=== PATIENT | male | born 1990 | race Two or more races ===

== ENCOUNTER 2023-10-15 11:37 | Emergency (ER) | payer BC, SELFPAY ==
--- NOTE | 2023-10-15 11:30 | RT.EKG_ITS ---
APPROVED REPORT Exam: Resting ECG Reason for Exam: chest pain Patient Location: E HR:114 bpm ECG Measurements Heart Rate [address] 182 P 47 QRSd 92 QRS 63 QT 355 T 263 QTc 490 Conclusion Sinus tachycardia. non specific st changes
[2023-10-15 11:40] VITALS: BP 122/94; PULSE 118; RESP 18; TEMP 37
[2023-10-15 12:18] LABS: HCT 47.2 % (40.0-50.0); HGB 16.4 g/dL (13.5-17.5); MCH 28.4 pg (27.0-33.0); MCHC 34.7 % (32.0-36.0); MCV 82 fL (80-95); MPV 12.6 fL (8.0-11.0); Platelet Count 182 10^3/uL (130-400); RBC 5.78 10^6/uL (4.36-5.78); RDW 12.4 % (11.8-14.1); RDW-SD 37.1 fL
[2023-10-15 12:32] LABS: ALT 22 U/L (16-63); AST 12 U/L (15-37); Albumin 4.6 g/dL (3.4-5.0); Alkaline Phosphatase 105 U/L (46-116); Anion Gap 12.6 mmol/L (3-11); BUN 13 mg/dL (7-18); Bilirubin, Total 2.3 mg/dL (0.2-1.0); CO2 27.4 mmol/L (21.0-32.0); CREATININE 0.9 mg/dL (0.70-1.30); Calcium 9.3 mg/dL (8.5-10.1); Chloride 101 mmol/L (98-107); Estimated GFR 114.22 (mL/min/1.73m2); Glucose 97 mg/dL (74-106); Lipase 20 U/L (16-77); Potassium 3.3 mmol/L (3.5-5.1); Sodium 141 mmol/L (136-145); Total Protein 8.1 g/dL (6.4-8.2)
[2023-10-15] MEDS: Normal Saline 1,000 ML 1000 ML IV (12:45)
[2023-10-15 12:53] LABS: Absolute Basophil Count 0.07 10^3/uL (0.0-0.2); Absolute Eosinophil Count 0.26 10^3/uL (0.0-0.7); Absolute Lymphocyte Count 2.09 10^3/uL (1.2-3.4); Absolute Monocyte Count 0.07 10^3/uL (0.1-0.8); Absolute Neutrophil Count 4.04 10^3/uL (1.2-6.7); Atypical Lymphocytes % 11 %; Bands % 1 %; Diff Comment Manual Differential
[2023-10-15 12:54] LABS: RBC Morphology Normal
[2023-10-15 12:55] LABS: WBC 6.52 10^3/uL (4.4-10.8)
--- NOTE | 2023-10-15 12:59 | DI.CT_ITS ---
Exam(s) CT ABDOMEN PELVIS WO EXAM: CT ABDOMEN PELVIS WO CLINICAL HISTORY: left flank pain. TECHNIQUE: Imaging Protocol: Axial computed tomography images with coronal and sagittal reformatted images were created and reviewed. Oral: no COMPARISON: No exams were available for comparison FINDINGS: Lung Bases: No acute findings. Liver: Normal density. No suspicious mass. Gallbladder and biliary tract: No radiodense calculus or biliary dilation. Pancreas: Normal density. No abnormal calcifications or inflammatory process. Spleen: Normal. Kidneys: Normal size, contour and axis. No radiodense stones. No obstructive uropathy. No suspicious masses seen. Adrenal glands: No masses seen. Lymph nodes: Within normal limits. Vasculature: Abdominal aorta non-dilated. Soft tissues: Unremarkable. Bladder: No wall thickening. No mass or calculi. Bowel: No obstruction or bowel wall thickening. Peritoneal cavity: No ascites. No focal collection. No mesenteric inflammatory response. Reproductive organs: Unremarkable. Bones: Unremarkable for age. IMPRESSION: No acute abnormality in the abdomen or pelvis. RADIATION DOSE DELIVERED: 693.03mGy.cm Total DLP DATA REPOSITORY: All CT scans at this facility are submitted to the National Radiology Data Registry (NRDR) Dose Index Registry (DIR) with the [employer] ([employer]). RADIATION OPTIMIZATION: All CT scans at this facility use at least one of these dose optimization te chniques: automated exposure control; mA and/or kV adjustment per patient size (includes targeted exa ms where dose is matched to clinical indication); or iterative reconstruction.
[2023-10-15 13:14] LABS: Bilirubin Negative (Negative); Blood Negative (Negative); Clarity Clear (Clear); Glucose Negative (Negative); Ketones 40 mg/dL (Negative); Leukocyte Esterase Negative (Negative); Nitrite Negative (Negative); Urobilinogen 0.2 mg/dL (Up to 0.2); pH 6.5 (5-8)
[2023-10-15 13:56] VITALS: BP 125/77; PULSE 75; RESP 16; O2SAT 100
--- NOTE | 2023-10-15 16:56 | ED.GENADUL_ITS ---
Discharge Plan Disposition Patient Disposition: Home Condition: Stable Discharge Details Clinical Impression: Abdominal pain, Constipation, Dehydration Primary Care Provider: Hakan Sommer ED Provider: Pushpa Currie Home Meds and New Rx's Prescriptions: No Action No Known Home Meds Discharge Instructions Instructions: Constipation (ED) Additional Instructions: Your workup today shows that you do have some signs of dehydration. You were given IV fluids. Please continue aggressive hydration at home. Believe that this is contributing to your abdominal pain. Your CT scan is concerning for a fair amount of stool and gas. This can cause significant pain. Start MiraLAX 1 cap twice daily. Follow-up with PCP if symptoms do not prove. Discharge Data Discharge Date/Time-TO BE ENTERED AT DEPARTURE: 10/15/23 14:02 HPI General Date/Time Provider Initiated Documentation: 10/15/23 11:47 . Limitations to Documentation: no limitations . Information obtained by: patient . HPI Narrative: 33-year-old gentleman without significant past medical history presents for evaluation of left upper quadrant abdominal pain. He reports that he has been having this pain for the last 2 days. He says that it started after having a very hard bowel movement. He states that he felt very constipated. The pain is localized to the left upper quadrant. It is not associated with exertion or shortness of breath. It was present for a day and then resolved and then returned today. No associated vomiting, dysuria. He reports that he had a normal bowel movement this morning with no pain. He does report similar symptoms a few years ago and an ER visit but he does not recall a specific diagnosis. Related Data Home Medications Medication Instructions Recorded Confirmed Unknown [No Known Home Meds] 10/15/23 10/15/23 Allergies Allergy/AdvReac Type Severity Reaction Status Date / Time ibuprofen Allergy Intermediate Hives Verified 10/15/23 12:36 Fish Containing Products Allergy Other (See Verified 10/15/23 12:36 Comment) Milk Containing Products Allergy Other (See Verified 10/15/23 12:36 (Dairy) Comment) General Stated Complaint: Chest/Rib DEVAN: 3 Exam Narrative Exam Narrative: Review of Systems: All systems reviewed & are unremarkable except as noted in HPI and below Well-developed, no acute distress NCAT PERRL, normal conjunctiva RRR no murmur Unlabored respiratory effort, clear bilaterally Nondistended abdomen, soft, no organomegaly, tenderness in the left upper quadrant with no CVA tenderness Extremities w/o deformity, no cyanosis, no edema No rashes or lesions. no focal neurologic deficits Appropriate mood and affect Course Vital Signs Vital signs: Vital Signs Temperature 37.0 C 10/15/23 11:40 Pulse 118 H 10/15/23 11:40 Respiratory Rate 18 10/15/23 11:40 Blood Pressure 122/94 H 10/15/23 11:40 Temperature 37.0 C 10/15/23 11:40 Temperature Source Temporal Artery Scan 10/15/23 11:40 Pulse 75 10/15/23 13:56 Respiratory Rate 16 10/15/23 13:56 Respiratory Effort Normal 10/15/23 12:00 Respiratory Depth Normal 10/15/23 12:00 Respiratory Pattern Normal 10/15/23 12:00 Blood Pressure 125/77 10/15/23 13:56 Blood Pressure Position Sitting 10/15/23 11:40 Pulse Oximetry 100 10/15/23 13:56 Oxygen Delivery Method Room Air 10/15/23 11:40 Oxygen Flow Rate 0 10/15/23 11:40 Lab/Test Results Lab/Test Results: Laboratory Tests Range/Units 10/15/23 10/15/23 10/15/23 12:05 12:05 12:43 WBC (4.4-10.8) 10^3/uL 6.52 RBC (4.36-5.78) 10^6/uL 5.78 Hgb (13.5-17.5) g/dL 16.4 Hct (40.0-50.0) % 47.2 MCV (80-95) fL 82 MCH (27.0-33.0) pg 28.4 MCHC (32.0-36.0) % 34.7 RDW (11.8-14.1) % 12.4 Plt Count (130-400) 10^3/uL 182 MPV (8.0-11.0) fL 12.6 H Immature Gran % % 0.0 Neutrophils % % 61.0 Band Neutrophils % % 1 Lymphocytes % % 21.0 Atypical Lymphs % % 11 Monocytes % % 1.0 Eosinophils % % 4.0 Basophils % % 1.0 Nucleated RBC % (0.0-0.3) % 0.0 Absolute Neutrophils (1.2-6.7) 10^3/uL 4.04 Absolute Lymphocytes (1.2-3.4) 10^3/uL 2.09 Absolute Monocytes (0.1-0.8) 10^3/uL 0.07 L Absolute Eosinophils (0.0-0.7) 10^3/uL 0.26 Absolute Basophils (0.0-0.2) 10^3/uL 0.07 RBC Morphology Normal Sodium (136-145) mmol/L 141 Potassium (3.5-5.1) mmol/L 3.3 L Chloride (98-107) mmol/L 101 Carbon Dioxide (21.0-32.0) mmol/L 27.4 Anion Gap (3-11) mmol/L 12.6 H BUN (7-18) mg/dL 13 Creatinine (0.70-1.30) mg/dL 0.9 Est GFR (CKD-EPI 2020) (mL/min/1.73m2) 114.22 Glucose (74-106) mg/dL 97 Calcium (8.5-10.1) mg/dL 9.3 Total Bilirubin (0.2-1.0) mg/dL 2.3 H AST (15-37) U/L 12 L ALT (16-63) U/L 22 Alkaline Phosphatase (46-116) U/L 105 Total Protein (6.4-8.2) g/dL 8.1 Albumin (3.4-5.0) g/dL 4.6 Lipase Cancelled 20 Urine Color (Yellow) Yellow Urine Clarity (Clear) Clear Urine pH (5-8) 6.5 Ur Specific [place] (1.005-1.025) 1.010 Urine Protein (Neg-Trace) mg/dL Negative Urine Ketones (Negative) mg/dL 40 H Urine Blood (Negative) Negative Urine Nitrite (Negative) Negative Urine Bilirubin (Negative) Negative Urine Urobilinogen (Up to 0.2) mg/dL 0.2 Ur Leukocyte Esterase (Negative) Negative Urine Glucose (Negative) mg/dL Negative Medical Decision Making Emergent evaluation of left upper quadrant abdominal pain ongoing for 2 days. Initial differential includes constipation, renal colic, pancreatitis, dehydration. The patient has a benign initial abdominal exam. His vital signs are stable. Initial tachycardia resolved in the room. Patient seems slightly anxious regarding the symptoms. Lab work reviewed. Normal white blood cell count and no significant anemia, perhaps some hemoconcentration even. Lab work reviewed, slightly low potassium. Slightly elevated anion gap with corresponding ketones in his urine. Feel that this is some sign of dehydration. He does have a slightly elevated bilirubin, but no right upper quadrant tenderness his your urinalysis is unremarkable aside from the ketones. And his lipase is normal. He was resuscitated with IV fluids. A CT scan was obtained, to be this does demonstrate a fair amount of stool and gas in the colon, but otherwise no renal stone or other abnormality. The patient was instructed to start MiraLAX and increase fluid intake at home. Strict return precautions advised. At this time no additional emergent workup indicated and the patient is discharged in good condition. Medical Records Medical records reviewed: Yes I reviewed the patient's medical records. Lab Data Lab results reviewed: Yes I reviewed the patient's lab results. Quality:[facility] Health Related Social Needs: No Data to Display PFSH All Active Problems Dehydration (Acute) Constipation (Acute) Abdominal pain (Acute) Social History Smoking/Tobacco Use Status: Never Smoking risk assessment performed?: Yes Alcohol Intake: current Alcohol Intake frequency: a few times a week Substance use type: does not use Housing: apartment Do you feel safe at home: Yes Do you feel safe in your relationship?: Yes PAWSS Have you Been Recently Intoxicated or Drunk Within the Last 30 days?: Yes Have you Ever Experienced Previous Episodes of Alcohol Withdrawal?: No Have you ever Experienced Withdrawal Seizures?: No Have you ever Experienced Delirium Tremens(DT)s?: No Have you ever undergone Alcohol Rehabilitation Treatment (i.e, inpt ot outpatient treatment programs)?: No Have you ever Experienced Blackouts?: No Have you ever Combined Alcohol with other Downers within the last 90 days?: No Have you ever Combined Alcohol with any other Substance of Abuse during the last 90 days?: No Result: 1
== END 2023-10-15 14:02 | disposition home or self-care (01) ==
PROVIDERS: Emergency Provider Emergency Medicine; PCP Family Medicine
DX: R10.12 Left upper quadrant pain (principal); K59.00 Constipation, unspecified; E86.0 Dehydration; R00.0 Tachycardia, unspecified
CPT/HCPCS: 80053; 83690; 93005; 96360; 99285; 74176; 81003; 85025; 93010; 99284